=== PATIENT | male | born 1955 | race Caucasian/White ===

== ENCOUNTER 2019-09-12 06:00 | Day surgery (SDC) | payer OTHER ==
[~2019-09-12 06:00] MED LIST: ANSAID100 MG PO; BACLOFEN10 MG PO; BAYER CHILDREN'81 MG PO; CARAFATE1 G PO; CIPRO500 MG PO; FLAGYL500MG PO; HEARTBURN RELI150 M1 PO; INTEGRA PLUS C1 EACH PO; INTESTINEX1 CAP PO; NEURONTIN800 MG PO; NEXIUM40 MG/PACK; NORVASC10 MG PO; Neurin-Sl Tablet Sl SL; PROTONIX40 MG PO; ULTRAM50 MG PO; ZESTRIL20 MG PO
== END 2019-09-12 10:10 | disposition home or self-care (01) ==
LOC: AMB-ENDOS 06:00 → ADM 13:45
PROVIDERS: ATTEND Colon & Rectal Surgery
DX: K57.32 Diverticulitis of large intestine without perforation or abscess without bleeding (principal); K64.1 Second degree hemorrhoids

== ENCOUNTER 2024-10-15 07:19 | Outpatient (CLI) | payer OTHER | END 2024-10-15 08:32 | disposition home or self-care (01) | LOC: SONOGRAMA 07:19 | DX: K76.0 Fatty (change of) liver, not elsewhere classified (principal) ==

== ENCOUNTER 2025-03-03 08:47 | Emergency (ER) | payer OTHER ==
[~2025-03-03] VITALS: Ht 167.6 cm; Wt 76.2 kg
[2025-03-03 09:33] VITALS: BP 146/75; O2SAT 97
[2025-03-03] MEDS ORDERED: OMEPRAZOLE MAGN20 MG PO (09:35)
[2025-03-03] MEDS ORDERED: 0.9 % SODIUM CHLORIDE 1,000 ML IV STA (10:05)
[2025-03-03] MEDS ORDERED: METOCLOPRAMIDE HCL 10 MG in DEXTROSE 5 % IN WATER 50 ML IV ONE (10:15)
[2025-03-03] MEDS ORDERED: FAMOTIDINE/PF 20 MG/2 ML VIAL IV ONE (10:15)
[2025-03-03] MEDS ORDERED: METOCLOPRAMIDE HCL 5 MG/ML VIAL ONE (10:46)
[2025-03-03] MEDS ORDERED: BARIUM SULFATE 450 ML ORAL.SUSP PO ONE (10:46)
[2025-03-03] MEDS ORDERED: METRONIDAZOLE/SODIUM CHLORIDE 500 MG/100 ML PIGGYBACK IV ONE (10:46)
[2025-03-03] MEDS ORDERED: FAMOTIDINE/PF 20 MG/2 ML VIAL ONE (10:46)
[2025-03-03 12:12] LABS: BASO % 0.2 % (0.1-1.2); EOS # 0.08 (0.04-0.54); EOS % 1.9 % (0.7-7.0); LYMPH # 1.01 (1.18-3.74); LYMPH % 24.0 % (19.3-53.1); MEAN PLATELET VOLUME 9.60 fl (9.4-12.4); MONO # 0.50 (0.24-0.82); MONO % 11.9 % (4.7-12.5); NEUT # 2.60 (1.56-6.13); NEUT % 62.0 % (34.0-71.1); RED CELL DISTRIBUTION WIDTH 14.2 % (11.6-14.4)
[2025-03-03 12:20] LABS: ERYTHROCYTE SEDIMENTATION RATE 19 mm/hr (0-20)
[2025-03-03 12:27] LABS: INR 1.05
[2025-03-03 12:29] LABS: ALT/SGPT 36.0 U/L (12-78); AST/SGOT 21.0 U/L (15-37); BILIRUBIN TOTAL 0.47 mg/dL (0.3-1.2); BILIRUBIN,CONJUGATED 0.15 mg/dL (0.0-0.2); BUN CREA RATIO 12.0 (7.0-25.0); CREATININE SERUM 0.85 mg/dL (0.70-1.30); GFR 89.9; GLUCOSE FASTING 92.0 mg/dL (65-100); OSMOLALITY SERUM 280.0 MOSM/KG (275-295)
[2025-03-03 12:30] LABS: COVID-19 AG NEGATIVE (NEGATIVE)
[2025-03-03 12:45] LABS: URINE APPEARANCE Clear; URINE BILIRRUBIN Small (NEGATIVE); URINE BLOOD Moderate; URINE COLOR Dark Yellow; URINE GLUCOSE Negative (NEGATIVE); URINE KETONE Trace (NEGATIVE); URINE LEUKOCYTE Negative; URINE NITRATE Negative; URINE PROTEIN Trace (NEGATIVE); URINE UROBILINOGEN 0.2 E.U./dl
[2025-03-03 12:50] LABS: URINE BACTERIA 14.3 uL (0.0-1933); URINE EPITHELIAL CELLS 2.4 uL (0.0-38.8); URINE RBC 41.2 uL (0.0-20.8); URINE WBC 6.3 uL (0.0-23.2)
[2025-03-03 13:05] LABS: URINE CAST 0.58 uL (0.0-1.40)
[2025-03-03 13:06] LABS: URINE CRYSTALS MANY /HPF
[2025-03-03] MEDS ORDERED: CIPRO500 MG PO (17:16)
[2025-03-03] MEDS ORDERED: METRONIDAZOLE500 MG PO (17:16)
== END 2025-03-03 18:36 | disposition home or self-care (01) ==
LOC: ER 08:48
PROVIDERS: General Practice
DX: K52.9 Noninfective gastroenteritis and colitis, unspecified (principal); R10.9 Unspecified abdominal pain; R11.0 Nausea; A08.8 Other specified intestinal infections; Z20.822 Contact with and (suspected) exposure to COVID-19; I10 Essential (primary) hypertension
CPT/HCPCS: 36415; 74177; 96365; 96366; 99284; J2765; J3490 ×2; J7030; Q9965